=== PATIENT | female | born 1930 | race Caucasian/White ===

== ENCOUNTER 2018-05-23 09:52 | Emergency (ER) | payer MEDICARE, OTHER ==
[~2018-05-23] VITALS: Ht 160 cm; Wt 61.2 kg
[2018-05-23] MEDS ORDERED: SODIUM CHLORIDE 0.9% 1,000 ML IV ONE (11:11)
[2018-05-23 11:56] VITALS: BP 182/89
[2018-05-23 12:00] LABS: Urine Bacteria NONE SEEN /hpf (None Seen); Urine Blood 3+ /uL (Negative); Urine Mucus FEW (None Seen); Urine WBC 13 /hpf (0 - 5)
[2018-05-23 12:14] LABS: Basophils # (auto) 0 uL; Basophils % (auto) 0.6 % (0.0-2.0); Eosinophils # (auto) 0.1 uL; Eosinophils % (auto) 0.8 % (0.0-7.0); Hematocrit 45.3 % (36.0-46.0); Hemoglobin 15.1 g/dL (12.2-16.2); Lymphocytes # (auto) 1.7 uL; Lymphocytes % (auto) 27.9 % (10.0-50.0); Mean Corpuscular Hemoglobin 29.4 pg (28.0-32.0); Mean Corpuscular Hgb Conc. 33.3 g/dL (32.0-36.0); Mean Corpuscular Volume 88.3 fL (80.0-100.0); Monocytes # (auto) 0.5 uL; Monocytes % (auto) 8.3 % (0.0-12.0); Neutrophils # (auto) 3.9 uL; Neutrophils % (auto) 62.4 % (37.0-80.0); Nucleated Red Blood Cells % 0.2 %; Platelet Count (auto) 114 10^3/uL (140-450); Red Blood Cells 5.13 10^6/uL (4.0-5.20); Red Cell Distribution Width 13.9 % (11.8-14.3); White Blood Cell 6.2 10^3/uL (4.4-10.8)
[2018-05-23 12:20] LABS: Albumin 3.9 g/dL (3.4-5.0); Calcium 9.1 mg/dL (8.5-10.1); Potassium 3.9 mmol/L (3.5-5.1)
[2018-05-23 12:23] LABS: Bilirubin, Total 0.5 mg/dL (0.2-1.0); Total Protein 7.1 g/dL (6.4-8.2)
[2018-05-23] MEDS ORDERED: cefTRIAXone 1GM/50ML D5W 50 ML IV ONE (12:45)
[2018-05-23 13:37] LABS: INR 1.01 (0.9-1.15); Partial Thromboplastin Time 24.1 sec (23.78-33.04); Prothrombin Time 10.8 sec (9.27-12.13)
== END 2018-05-23 16:01 | disposition home or self-care (01) ==
LOC: ER 09:52
DX: K64.9 Unspecified hemorrhoids (principal)
CPT/HCPCS: 36415; 71045; 74176; 76856; 80053; 81001; 83880; 84484; 85025; 85610; 85730; 96374; 99284; J0696; J7030

== ENCOUNTER 2018-05-30 06:12 | Inpatient (IN) | payer OTHER | END 2018-06-07 14:45 | disposition home or self-care (01) | LOC: TELE-EAST 06-01 19:16 → EAST 06-06 13:08 → TELE-EAST 05-31 22:54 → ER 06:12 → TELE 09:50 → TELE-EAST 12:07 | PROC: 0DBL8ZX Excision of Transverse Colon, Via Natural or Artificial Opening Endoscopic, Diagnostic (ICD-10-PCS; principal; 2018-06-05 11:50) | DX: A41.9 Sepsis, unspecified organism (principal); G93.41 Metabolic encephalopathy; J18.9 Pneumonia, unspecified organism; K85.90 Acute pancreatitis without necrosis or infection, unspecified; N39.0 Urinary tract infection, site not specified; E86.0 Dehydration; I16.0 Hypertensive urgency; E87.6 Hypokalemia; K80.20 Calculus of gallbladder without cholecystitis without obstruction; F03.90 Unspecified dementia, unspecified severity, without behavioral disturbance, psychotic disturbance, mood disturbance, and anxiety; J20.9 Acute bronchitis, unspecified; K64.8 Other hemorrhoids; K64.4 Residual hemorrhoidal skin tags ==

== ENCOUNTER 2018-06-11 17:24 | Inpatient (IN) | payer OTHER ==
[~2018-06-11] VITALS: Ht 160 cm; Wt 70.4 kg
[2018-06-11] MEDS ORDERED: SODIUM CHLORIDE 0.9% 1,000 ML IV ONE (18:20)
[2018-06-11] MEDS ORDERED: ACETAMINOPHEN 325 MG TAB PO ONE (18:30)
[2018-06-11] MEDS ORDERED: LEVOFLOXACIN 500 MG/100 ML PREMIX BAG IV ONE (18:30)
[2018-06-11] MEDS ORDERED: ACETAMINOPHEN 650 MG RECT SUPP PR ONE (19:00)
[2018-06-11 19:13] LABS: Basophils # (auto) 0 uL; Basophils % (auto) 0.3 % (0.0-2.0); Eosinophils # (auto) 0.1 uL; Eosinophils % (auto) 0.4 % (0.0-7.0); Hematocrit 42.2 % (36.0-46.0); Lymphocytes # (auto) 0.4 uL; Lymphocytes % (auto) 3.2 % (10.0-50.0); Mean Corpuscular Hemoglobin 29.3 pg (28.0-32.0); Mean Corpuscular Hgb Conc. 33.2 g/dL (32.0-36.0); Mean Corpuscular Volume 88.4 fL (80.0-100.0); Monocytes # (auto) 0.5 uL; Monocytes % (auto) 3.7 % (0.0-12.0); Neutrophils # (auto) 11.9 uL; Neutrophils % (auto) 92.4 % (37.0-80.0); Nucleated Red Blood Cells % 0.1 %; Platelet Count (auto) 161 10^3/uL (140-450); Red Blood Cells 4.77 10^6/uL (4.0-5.20); Red Cell Distribution Width 13.9 % (11.8-14.3); White Blood Cell 12.9 10^3/uL (4.4-10.8)
[2018-06-11 19:15] LABS: Urine Bacteria NONE SEEN /hpf (None Seen); Urine Blood TRACE /uL (Negative); Urine Hyaline Cast FEW /lpf (0 - 2); Urine Mucus FEW (None Seen); Urine Specific Gravity 1.015 (1.001-1.035); Urine WBC 8 /hpf (0 - 5)
[2018-06-11 19:34] LABS: Albumin 3.6 g/dL (3.4-5.0); Calcium 9.6 mg/dL (8.5-10.1); Potassium 3.6 mmol/L (3.5-5.1)
[2018-06-11 19:38] LABS: BUN/Creatinine Ratio 11.1; Bilirubin, Total 0.6 mg/dL (0.2-1.0); Magnesium 2.2 mg/dL (1.6-2.6); Total Protein 6.9 g/dL (6.4-8.2)
[2018-06-11] MEDS ORDERED: ACETAMINOPHEN 325 MG TAB PO PRN (21:30)
[2018-06-11] MEDS ORDERED: DOCUSATE SOD 100 MG CAP PO PRN (21:30)
[2018-06-11] MEDS ORDERED: ONDANSETRON HCL 4 MG/2 ML VIAL IV PRN (21:30)
[2018-06-11] MEDS: FAMOTIDINE 20 MG TAB PO SCH (21:55)
[2018-06-11] MEDS: CARVEDILOL 3.125 MG TAB PO SCH (22:01)
--- NOTE | 2018-06-11 23:40 | NUR ---
Admitted to room 247A fro ER. Alert and oriented x1. Very pleasantly confused. Skin clear. Read in place. IV patent. Oriented to room and call light. Bed alarm in place. IV intact and infusing per orders. call light within reach
[2018-06-12] VITALS (9 sets, daily range): BP systolic 106–148; BP diastolic 51–93
--- NOTE | 2018-06-12 08:00 | NUR ---
ASSESSMENT NOTE PT IS ALERT TO SELF AND HER ONLY, CONFUSED TO TIME, PERSON AND PLACE, ABLE TO VERBALIS HER DEMANDS, SELF REPOSITION NEEDED, PAIN 0/10, CONTINUE ON FALL RISK PRECAUTIONS, NEXT TO NURSING STATION.
[2018-06-12 08:12] LABS: Basophils # (auto) 0.1 uL; Basophils % (auto) 0.3 % (0.0-2.0); Eosinophils # (auto) 0.1 uL; Eosinophils % (auto) 0.4 % (0.0-7.0); Hematocrit 38.3 % (36.0-46.0); Hemoglobin 12.5 g/dL (12.2-16.2); Lymphocytes # (auto) 0.5 uL; Lymphocytes % (auto) 2.5 % (10.0-50.0); Mean Corpuscular Hemoglobin 29.2 pg (28.0-32.0); Mean Corpuscular Hgb Conc. 32.6 g/dL (32.0-36.0); Mean Corpuscular Volume 89.4 fL (80.0-100.0); Monocytes # (auto) 0.8 uL; Monocytes % (auto) 4.2 % (0.0-12.0); Neutrophils # (auto) 17.5 uL; Neutrophils % (auto) 92.6 % (37.0-80.0); Platelet Count (auto) 161 10^3/uL (140-450); Red Blood Cells 4.29 10^6/uL (4.0-5.20); Red Cell Distribution Width 14.5 % (11.8-14.3); White Blood Cell 18.9 10^3/uL (4.4-10.8)
--- NOTE | 2018-06-12 08:15 | NUR ---
FAMILY PT'S AT BED SIDE
--- NOTE | 2018-06-12 08:30 | NUR ---
BREAKFAST PT'S AT BED SIDE ENCOURAGING HIS TO EAT.
[2018-06-12] MEDS: FAMOTIDINE 20 MG TAB PO SCH (09:14)
[2018-06-12] MEDS: CARVEDILOL 3.125 MG TAB PO SCH ×2 (09:15→22:00)
--- NOTE | 2018-06-12 10:00 | NUR ---
SKIN CARE BILATERAL INNER THIGH SMALL REDNESS NOTED, CLEANSE WELL WITH SOAP AND WATER, PAT IT TO DRY, ANTIFUNGAL CREAM APPLIED, OT'S HISBAND AWARE AT BED SIDE.
[2018-06-12] MEDS ORDERED: AZIT500T4 PO (11:38)
[2018-06-12] MEDS ORDERED: CARV6.2551 PO (11:38)
[2018-06-12] MEDS ORDERED: ENA2.5T PO (11:38)
[2018-06-12] MEDS ORDERED: NITR100C44 PO (11:38)
[2018-06-12] MEDS ORDERED: DOCU-80 PO (11:38)
[2018-06-12] MEDS: PIPERACILLIN-TAZOB 2.25GM 50 ML IV SCH ×2 (12:00→17:29)
[2018-06-12] MEDS: SODIUM CHLORIDE 0.9% 1,000 ML IV SCH (15:33)
[2018-06-12 16:47] LABS: Urine Bacteria NONE SEEN /hpf (None Seen); Urine Blood 1+ /uL (Negative); Urine Mucus MANY (None Seen); Urine Specific Gravity 1.021 (1.001-1.035); Urine WBC 48 /hpf (0 - 5)
--- NOTE | 2018-06-12 17:00 | NUR ---
FAMILY PT'S SON AND HIS AT BED SIDE, WITH PATIENT AND PT'S
--- NOTE | 2018-06-12 17:15 | NUR ---
DISCHARGE PLANING PLEASE CONTACT PT'S SON ON DISCHARGE HOME.
--- NOTE | 2018-06-12 21:30 | NUR ---
Patient trying to get out of bed multiple times. Bed alarm on. also pulling at her bill. Wanted to call her and pick her up. I dialed the phone number for her and spoke with her . He sstated he would come down and stay with her tonight. Charge notified and approved. Moving patient to room 237 after he arrives.
[2018-06-12] MEDS ORDERED: LEVOFLOXACIN 250MG 50 ML IV SCH (22:00)
[2018-06-13] MEDS: PIPERACILLIN-TAZOB 2.25GM 50 ML IV SCH ×4 (01:00→17:36)
--- NOTE | 2018-06-13 04:00 | NUR ---
Pulled out IV. New IV started to R FA 22 g. at bedside
[2018-06-13 04:36] VITALS: BP 134/70
[2018-06-13] MEDS: SODIUM CHLORIDE 0.9% 1,000 ML IV SCH ×2 (06:35→23:20)
[2018-06-13 06:54] LABS: Basophils # (auto) 0 uL; Basophils % (auto) 0.3 % (0.0-2.0); Eosinophils # (auto) 0.8 uL; Eosinophils % (auto) 9.5 % (0.0-7.0); Hematocrit 33.6 % (36.0-46.0); Hemoglobin 11.4 g/dL (12.2-16.2); Lymphocytes # (auto) 1.1 uL; Mean Corpuscular Hemoglobin 29.4 pg (28.0-32.0); Mean Corpuscular Volume 86.4 fL (80.0-100.0); Monocytes # (auto) 0.5 uL; Monocytes % (auto) 6.2 % (0.0-12.0); Neutrophils # (auto) 6.3 uL; Platelet Count (auto) 134 10^3/uL (140-450); Red Blood Cells 3.89 10^6/uL (4.0-5.20); Red Cell Distribution Width 14.2 % (11.8-14.3); White Blood Cell 8.8 10^3/uL (4.4-10.8)
[2018-06-13 07:06] LABS: Calcium 8.7 mg/dL (8.5-10.1); Magnesium 2.3 mg/dL (1.6-2.6); Potassium 3.4 mmol/L (3.5-5.1)
[2018-06-13 07:08] LABS: BUN/Creatinine Ratio 16.8
[2018-06-13 07:46] VITALS: BP 109/54
[2018-06-13 08:58] VITALS: BP 155/73
[2018-06-13] MEDS: FAMOTIDINE 20 MG TAB PO SCH (10:26)
[2018-06-13] MEDS: CARVEDILOL 3.125 MG TAB PO SCH ×2 (10:26→22:35)
[2018-06-13] MEDS: ENOXAPARIN SOD 30 MG/0.3 ML SYRINGE SC SCH (10:27)
[2018-06-13 11:54] VITALS: BP 141/74
[2018-06-13] MEDS ORDERED: POTASSIUM CHL 20 Meq TABLET PO ONE (13:00)
[2018-06-13] MEDS ORDERED: POTASSIUM EFFERVESENT TAB 25 MEQ PO ONE (15:45)
[2018-06-13 16:50] VITALS: BP 138/66
[2018-06-13 22:00] VITALS: BP 169/79
[2018-06-14] MEDS: PIPERACILLIN-TAZOB 2.25GM 50 ML IV SCH ×3 (00:41→12:00)
[2018-06-14 05:00] VITALS: BP 164/96
--- NOTE | 2018-06-14 05:50 | NUR ---
Shift Note The patient had a restless night, she was unable to understand that she was in the hospital and not going home tonight. She started out trying to get out of bed constantly. Found her twice standing at the end of her bed trying to remove the bill. Ended up setting the bed alarm to a more sensitive level which seemed to work as we would get to her vis bed alarm before she had time to get out of bed. Later during the shift the patient pulled her IV from her arm. Replaced the IV and placed mittens on the patient. That seemed to hold her for a while but then around 0530hrs the patient managed to pull out her bill catheter despite the mittens. One of the CNAs is sitting with the patient until change of shift. Will continue to monitor.
[2018-06-14 09:07] VITALS: BP 185/90
[2018-06-14 09:33] LABS: Basophils # (auto) 0.1 uL; Basophils % (auto) 1.1 % (0.0-2.0); Eosinophils # (auto) 0.7 uL; Eosinophils % (auto) 10.2 % (0.0-7.0); Hematocrit 38.4 % (36.0-46.0); Hemoglobin 12.3 g/dL (12.2-16.2); Lymphocytes # (auto) 1.2 uL; Lymphocytes % (auto) 18.5 % (10.0-50.0); Mean Corpuscular Hemoglobin 28.9 pg (28.0-32.0); Mean Corpuscular Hgb Conc. 32.1 g/dL (32.0-36.0); Mean Corpuscular Volume 90.1 fL (80.0-100.0); Monocytes # (auto) 0.4 uL; Monocytes % (auto) 6.7 % (0.0-12.0); Neutrophils # (auto) 4.2 uL; Neutrophils % (auto) 63.5 % (37.0-80.0); Nucleated Red Blood Cells % 0.1 %; Platelet Count (auto) 148 10^3/uL (140-450); Red Blood Cells 4.26 10^6/uL (4.0-5.20); Red Cell Distribution Width 14.5 % (11.8-14.3); White Blood Cell 6.6 10^3/uL (4.4-10.8)
[2018-06-14 09:51] LABS: Anion Gap 7 (5-15); BUN/Creatinine Ratio 15.9; Blood Urea Nitrogen 17 mg/dL (7-18); Calcium 8.6 mg/dL (8.5-10.1); Carbon Dioxide 22 mmol/L (21-32); Chloride 112 mmol/L (98-107); GFR African American 63 mL/min; GFR Non-African American 52 mL/min; Glucose 97 mg/dL (74-106); Potassium 3.4 mmol/L (3.5-5.1); Sodium 141 mmol/L (136-145)
[2018-06-14] MEDS: CARVEDILOL 3.125 MG TAB PO SCH (10:12)
[2018-06-14] MEDS: FAMOTIDINE 20 MG TAB PO SCH (10:12)
[2018-06-14] MEDS: ENOXAPARIN SOD 30 MG/0.3 ML SYRINGE SC SCH (10:12)
[2018-06-14] MEDS ORDERED: POTASSIUM CHL 20 Meq TABLET PO ONE (12:30)
[2018-06-14] MEDS ORDERED: LEVO500T21 PO (12:36)
[2018-06-14 13:00] VITALS: BP 110/73
[2018-06-14 13:09] VITALS: BP 110/73
== END 2018-06-14 15:00 | disposition home or self-care (01) | DRG 871 ==
LOC: ER 17:28 → OVERFLOW 21:32 → EAST 23:40
PROVIDERS: ADMIT Nurse Practitioner; ATTEND Internal Medicine
DX: A41.9 Sepsis, unspecified organism (principal); J69.0 Pneumonitis due to inhalation of food and vomit; N17.0 Acute kidney failure with tubular necrosis; J96.00 Acute respiratory failure, unspecified whether with hypoxia or hypercapnia; G93.41 Metabolic encephalopathy; N39.0 Urinary tract infection, site not specified; F03.90 Unspecified dementia, unspecified severity, without behavioral disturbance, psychotic disturbance, mood disturbance, and anxiety; G31.9 Degenerative disease of nervous system, unspecified; I10 Essential (primary) hypertension; Z86.73 Personal history of transient ischemic attack (TIA), and cerebral infarction without residual deficits
CPT/HCPCS: 36415; 51702; 70450; 71045; 71250; 80048; 80053; 81001; 83605; 83735; 84484; 85025; 87040; 87081; 87086; 87804; 93005; 94761; 96361; 96365; 96375; 97116; 97530; G0378; J1956; J2543